=== PATIENT | female | born 1975 | race Caucasian/White ===

== ENCOUNTER 2022-01-14 14:58 | Outpatient (RCR) | payer OTHER, SELFPAY ==
[2022-01-14] MEDS: 0.9 % SODIUM CHLORIDE 1000 ml 1,000 ML IV (15:50)
[2022-01-14] MEDS: diphenhydrAMINE 50 MG/ML inj 12.5 MG IV (15:50)
[2022-01-14 15:51] LABS: Basophils Absolute Auto 0.02 K/uL (0.00-0.30); Basophils Percent Auto 0.4 % (0.0-3.0); Eosinophils Absolute Auto 0.16 K/uL (0.00-0.50); Eosinophils Percent Auto 3.5 % (0.0-7.0); Hematocrit 39.3 % (33.0-51.0); Hemoglobin* 13.1 gm/dL (12.0-16.0); Immature Granulocytes Abs Auto 0.03 K/uL (0.00-0.30); Lymphocytes Percent Auto 35.2 % (20-44); Mean Corpuscular HGB Conc 33 gm/dL (32-36); Mean Corpuscular Hemoglobin 30 pg (26-34); Mean Corpuscular Volume 89 fL (80-100); Monocytes Percent Auto 4.6 % (0.0-11.0); Neutrophils Absolute Auto 2.53 K/uL (1.7-7.0); Neutrophils Percent Auto 55.6 % (42.0-72.0); Platelet Count* 275 K/uL (140-440); RDW Coefficient of Variation % 12.8 % (11.5-15.5); Red Blood Count 4.43 m/uL (4.00-5.20); White Blood Count* 4.55 K/uL (4.50-11.00)
[2022-01-14] MEDS: KETOROLAC 15 MG/ML inj IVP (15:51)
[2022-01-14 15:53] VITALS: BP 112/79; PULSE 54; RESP 16; TEMP 35.9; O2SAT 97
[2022-01-14 15:53] LABS: Chloride* 106 mmol/L (96-114); Sodium* 138 mmol/L (135-149)
[2022-01-14 15:54] LABS: Potassium* 3.9 mmol/L (3.6-5.1); Slide Review Reflex No
[2022-01-14 15:56] LABS: Aspartate Amino Transferase* 22 U/L (12-35); Bilirubin Total* 0.7 mg/dL (0.1-1.5); Carbon Dioxide* 27 mmol/L (20-32); Creatinine* 0.8 mg/dL (0.5-1.5); Estimated Glomerular Filt Rate 93 ml/min
[2022-01-14 15:57] LABS: Alanine Aminotransferase* 15 U/L (4-35); Alkaline Phosphatase* 42 U/L (40-150); Blood Urea Nitrogen* 13 mg/dL (5-24); Calcium* 9.4 mg/dL (8.4-10.6); Glucose* 100 mg/dL (60-115)
[2022-01-14 16:00] LABS: C Reactive Protein* < 0.5 mg/dL (0.5-1.0)
[2022-01-14 17:06] LABS: Erythrocyte SedimentationRate* 2 mm/hr (2-20)
== END 2022-07-13 23:59 | disposition home or self-care (01) ==
LOC: ED 14:58
PROVIDERS: Visit Provider Family Medicine
DX: G43.909 Migraine, unspecified, not intractable, without status migrainosus (principal); Z51.89 Encounter for other specified aftercare
CPT/HCPCS: 36415; 80053; 85025; 85651; 86140; J1200; J1885; J7030

== ENCOUNTER 2022-04-14 09:17 | Outpatient (CLI) | payer OTHER, SELFPAY ==
--- OUTSIDE RECORDS SUMMARY | 2022-04-14 09:20 | XMS_ITS | Encounter Summary ---
:1975 Author Organization [facility] Address [address] [place] [address] Care Team Providers Name Role Phone Sascha Apodaca MD Primary Care Provider Encounter Details Date Type Department Care Team Description 12/11/[address], Drive-Up Encounter [facility] [address] [facility] [place] [address] diseases [phone] Social History Tobacco Use Types Packs/Day Years Used Date Smoking Tobacco: Never Smokeless Tobacco: Never Sex Assigned at Date Recorded Not on file documented as of this encounter Plan of Treatment Not on filedocumented as of this encounter Procedures Procedure Name Priority Date/Time Associated Comments Diagnosis 2019 NOVEL Routine 12/11/2019 1:13 PM Encounter for Results for this CORONAVIRUS CDT screening for other procedur e are in viral diseases the results section. documented in this encounter Results Symptomatic - 2019 Novel Coronavirus (COVID-19) (12/11/2019 1:13 PM CDT) [facility] Method Time Signature COVID-19 Not Not 12/12/2019 [facility] Interpretation Detected Detected 2:18 AM CENTRAL LAB CDT Specimen Anatomical Collection Method Collection Time Receive d Time (Source) Location / / Volume Laterality Swab (Source Non-blood 12/11/2019 1:13 PM 0 4:22 Required) Collection / CDT PM CDT Unknown Narrative [facility] CENTRAL LAB - 12/12/2019 2:18 AM CDT Testing has been performed by Patient Safety Sitter Mediated Amplification. This test has been authorized by the FDA under an Emergency Use Authorization (EUA) for use by authorized laboratories. Sascha Apodaca MD LAB_1 Performing Organization Address City/State/ZIP Code Phon e Number [facility] [address] [address] documented in this encounter Visit Diagnoses Diagnosis Encounter for screening for other viral diseases documented in this encounter Additional Health Concerns Infection Onset Date Last Indicated Resolved Time R/O COVID19 12/11/2019 12/11/2019 12/12/2019 2:18 AM CDT documented as of this encounter Care Teams Travel Assistant Relationship Specialty Start Date End Date Sascha Apodaca MD PCP - General 05/30/171999 [place] [address] documented as of this encounter
--- OUTSIDE RECORDS SUMMARY | 2022-04-14 09:20 | XMS_ITS | Encounter Summary ---
:1975 Author [facility] Address [address] [place] [address] Care Team Providers Name Role Phone Sascha Apodaca MD Primary Care Provider Reason for Visit Reason Comments Questions PT Encounter Details Date Type Department Care Team Description 06/15/2017 Telephone [facility] Cristian Sotomayor, SAMPLE CASE PORTER, Questions (PT) [address] [place], [place] [address] [address]100 [facility] [phone] [place] [address] (Wo rk) Social History Tobacco Use Types Packs/Day Years Used Date Smoking Tobacco: Never Smokeless Tobacco: Never Sex Assigned at Date Recorded Not on file documented as of this encounter Nursing Notes Felicitas Phoenix, RN - 06/15/2017 2:03 PM CST the patient left message on voicemail and would like to talk with Cristian Thompson about her PT. She may go to [place] [facility] She has the order paper work. Left message on voicemail that she may go to PT in [place] if her insurance approves of this as she has the order with her. DEVELOPER documented in this encounter Plan of Treatment Not on filedocumented as of this encounter Visit Diagnoses Not on filedocumented in this encounter Care Teams Preflight Inspector Relationship Specialty Start Date End Date Sascha Apodaca MD PCP - General 05/30/171999 [place] [address] documented as of this encounter
--- OUTSIDE RECORDS SUMMARY | 2022-04-14 09:20 | XMS_ITS | Clinical Summary ---
:1975 Author Organization [facility] Address [address], [place] [address] Care Team Providers Name Role Phone Sascha Apodaca MD Primary Care Provider Source Comments You are receiving this document as you are listed as the primary care provider,follow-up provider, or the patient has been referred to you for consultation.This is in compliance with the Medicare and Medicaid EHR Incentive Program,which states Providers who transition their patient to another setting of careor provider of care or refers their patient to another provider of care shouldprovide summarycare record for each transition of care or referral. [employer] Allergies No known active allergies Medications Medication Sig Dispensed Refills Start Date End Date Status ALBUterol sulfate HFA Inhale 2 Puffs 0 Active 108 (90 BASE) MCG/ACT every 4 hours as inhaler needed for Wheezing. oseltamivir (TAMIFLU) Take 1 twice 10 Cap 0 08/01/2016 Active 75 MG daily x 5 days capsuleIndications: Flu-like symptoms Additional Information Patient not taking. Reported on 06/07/2017 Active Problems No known active problems Social History Tobacco Use Types Packs/Day Years Used Date Smoking Tobacco: Never Smokeless Tobacco: Never Sex Assigned at Date Recorded Not on file Last Filed Vital Signs Vital Sign Reading Time Taken Comments Blood Pressure - - Pulse 77 08/01/2016 4:26 PM FIBROUS PLASTERER Temperature 37.2 ??C (98.9 ??F) 08/01/2016 4:26 PM FIBROUS PLASTERER Respiratory Rate - - Oxygen Saturation 100% 08/01/2016 4:26 PM FIBROUS PLASTERER Inhaled Oxygen Concentration - - Weight 59 kg (130 lb) 06/07/2017 2:47 PM FIBROUS PLASTERER Height 167.6 cm (5' 6) 06/07/2017 2:47 PM FIBROUS PLASTERER Body Mass Index 20.98 06/07/2017 2:47 PM FIBROUS PLASTERER Plan of Treatment Health Maintenance Due Date Last Done Comments Cervical Cancer Screening 1975 Due Colon Cancer Screening Plan 1975 Due Hep C Screening (Preventive 1975 Services) HepB (1) 1975 COVID-19 Vaccine (#1) 1975 HIV Screening (Preventive 1993 Services) Adult Preventive Visit 1995 Influenza (#1) 2022 03/19/2020, 03/14/2019, 03/15/2018, Additional history exists Cholesterol 2022 DTaP/Tdap/Td (2 - Tdap) 07/19/2026 07/19/2016 Zoster/Shingles (1 of 2) 2027 HPV Vaccine Aged Out No longer eligib le based on patient 's age to complete this topic HepA Aged Out No longer eligib le based on patient 's age to complete this topic Hib Aged Out No longer eligib le based on patient 's age to complete this topic IPV (Polio) Aged Out No longer eligib le based on patient 's age to complete this topic MCV4 Aged Out No longer eligib le based on patient 's age to complete this topic Pneumococcal Aged Out No longer eligib le based on patient 's age to complete this topic Insurance Payer Benefit Plan / Subscriber ID Effective Phone Address T e Group Dates PREFERREDONE PREFERREDONE [id number] 2016-Pre [phone] OPEN ACCESS sent [phone] [place] [phone] Clarisse Serra Personal/Family Self [address] (Home) [place] [address] Clarisse Serra Personal/Family Self [address] (Home) [place] [address] Clarisse Serra Personal/Family Self 1975 [address] (Home) [place] [address] Care Teams Professor Of Mechanical Engineering Relationship Specialty Start Date End Date Sascha Apodaca MD PCP - General 05/30/171999 [place] [address]
--- OUTSIDE RECORDS SUMMARY | 2022-04-14 09:20 | XMS_ITS | Encounter Summary ---
:1975 Author Organization [facility] Address [address] [place] [address] Care Team Providers Name Role Phone Sascha Apodaca MD Primary Care Provider Reason for Referral Therapies (Routine) - Closed Specialty Diagnoses / Procedures Referred By Contact Refer red To Contact Diagnoses Tibialis posterior tendinitis, unspecified laterality Cristian Thompson, NORBERTO OSUNA [address] [facility] NATALIE Proctor [phone] 1 Referral ID Status Reason Start Date Expiration Date Visits Requ ested Visits Authorized [id number] Closed 06/07/2017 08/06/2017 1 1 Scheduling Instructions Your provider has recommended an appoint ment with [facility]. You may call [phone] to schedule your appoi ntment. If you do not schedule an appointment within the next 1 to 3 business days, we will call you to help arrange your appointment. We suggest you call your [facility] insurance company about your coverage and benefits for this appointment. OTAPE EDITOR Reason for Visit Reason Comments ANKLE PAIN bilateral ankle pain Encounter Details Date Type Department Care Team Description 06/07/2017 Surgical Consult [facility] Cristian Thompson Tibi alis [facility] NORBERTO OSUNA tendinitis, [address] [facility] [address] [facility] unspecified NATALIE Fernandes [place] lateralit y (Primary [id number] Dx) [phone] Social History Tobacco Use Types Packs/Day Years Used Date Smoking Tobacco: Never Smokeless Tobacco: Never Sex Assigned at Date Recorded Not on file documented as of this encounter Last Filed Vital Signs Vital Sign Reading Time Taken Comments Blood Pressure - - Pulse - - Temperature - - Respiratory Rate - - Oxygen Saturation - - Inhaled Oxygen Concentration - - Weight 59 kg (130 lb) 06/07/2017 2:47 PM VIDEOTAPE EDITOR Height 167.6 cm (5' 6) 06/07/2017 2:47 PM VIDEOTAPE EDITOR Body Mass Index 20.98 06/07/2017 2:47 PM VIDEOTAPE EDITOR documented in this encounter Patient Instructions Patient InstructionsWellCristian khalil APRN, CNP - 06/07/2017 2:30 PM CST Cristian Thompson CNP Foot & Ankle Specialist Manager Consumer: Ana Vale Please contact Ana for all administrative questions at [phone] Please contact Cristian for all medical questions at [phone] Medication Requests: Prescriptions are not filled on Weekends or on Weekdays after 3:00PM For all medication refills: Request a refill using [employer] or contact your Pharmacy Please buy and use the Super Feet insert. Do not go barefoot at home. Go to PT as directed. If you are having continued pain after finishing PT and its affecting your quality of life then we will get an MRI. OTAPE EDITOR documented in this encounter Progress Notes Cristian Thompson APRN, CNP - 06/08/2017 7:02 AM CST NAME: CLARISSE ROSAS MR#: [id number] CSN: [id number] AUTHENTICATING CLINICIAN: Cristian Thompson NP CONFIRM #: [id number] LOC: 711 CLINIC PROGRESS NOTE DATE OF VISIT: 06/07/2017 : 1975 CHIEF COMPLAINT: Bilateral medial ankle pain. HPI: Clarisse is a pleasant 42-year-old female who presents for initial clinical consultation regarding pain to her bilateral medial ankles that has been present since this summer/fall 2016. She was ultimately training for this last half marathon in March but was unable to do this due to the pain. She didshut down her running for a month and attempted to run again but again was having too much pain. Shehas tried things such as changing her shoes, not going barefoot at home, wearing a good supportive shoe while at work but is unable to get to where she would like to as far as her level of discomfort and being able to run. She states that her pain is worse in the morning, as high as a 4/10 and also has difficulty with stairs. She has never had this before in the past and has not been evaluated for this. Running is not new to her as she has done several half marathons before. Her baseline is about 20miles per week. When she was beginning to train, she was going as much as 7 miles per run. She has not attempted any running since March 2017. She does state that she has had flat feet her entire life bilaterally and at one point did have custom orthotics but they were a hard type insert and she washaving pain associated with wearing them and standing for her job. CURRENT MEDICAL CONDITIONS: Asthma and long QT syndrome. PREVIOUS SURGERIES: Left knee arthroscopy, 2005. MEDICATIONS: Ibuprofen p.r.n., vitamin D. ALLERGIES: Any medication that prolongs the QT interval. 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 She lives with her , two kids and her dog. Immunizations are up to date, right-handed. Denies history of substance/drug use, exercises often, however, is limited due to the pain. REVIEW OF SYSTEMS: A 15-point review of systems is negative for any pertinent positives except for those listed in the HPI. FAMILY HEALTH HISTORY: Noncontributory. PHYSICAL EXAM: Pleasant 42-year-old female in no acute distress with a height of 5 feet 6 inches and weight 130 pounds. Pedal pulses palpable bilateral feet. Skin is warm and dry bilaterally. Neurovascularly grossly intact bilaterally. Upon standing exam, she does have pes planus with right slightly greater than left. She does have pain along the course of the posterior tibial tendon bilaterally which is exacerbated by resisted inversion of the foot. No pain upon palpation to the anterior tibiotalar joint bilaterally. Normal range of motion of the bilateral ankle, subtalar joint, forefoot. When attempting to do asingle leg and heel rise, she was able to do this on both the left and the right foot. However, it did reproduce the symptoms that she has been having. Her hindfoot valgus bilaterally is flexible. ASSESSMENT: Bilateral posterior tibial tendon dysfunction stage II. Right equals left. PLAN: Clarisse has had flat feet all her life but has not had any symptoms related to her posterior tibial tendons until recently. We discussed not knowing about tendinitis versus tendinosis without having anMRI. However, her symptoms currently are only present due to running. We are going to start with a stepwise approach beginning with wearing Superfeet inserts. I did explain that she is to break these in and wear these for at least one month before she figures out if these are helping her symptoms. If they are ultimately helping her we can get new custom orthotics that are more accommodative and allowher to wear these in her shoes when she is operating and standing for long periods of time. She is no t going to go barefoot at home. She is also going to go to physical therapy. If all of this is not helping her discomfort or not getting to where she would like to be, then we discussed further imagingwith an MRI with the possibility of a steroid injection to the posterior tibial tendon sheath and/orpotentially needing surgery down the road. For now followup will be dependent on how she is doing. All questions were addressed during her visit. All parties agree with plan of care. Patient appeared pleased with the visit. DTW:VIOLETA C: R:06/08/17 07:12 CONFIRM#:[id number] OTAPE EDITOR documented in this encounter Plan of Treatment Scheduled Referrals Name Type Priority Associated Diagnoses Order S [facility] Physical Therapy Referral Routine Tibialis posterior tendi nitis, Ordered: 06/07/2017 unspecified laterality documented as of this encounter Visit Diagnoses Diagnosis Tibialis posterior tendinitis, unspecifi ed laterality - Primary documented in this encounter Care Teams Behavioral Specialist Relationship Specialty Start Date End Date Sascha Apodaca MD PCP - General 05/30/171999 [place] [address] documented as of this encounter
--- OUTSIDE RECORDS SUMMARY | 2022-04-14 09:20 | XMS_ITS | Encounter Summary ---
:1975 Author Organization [facility] Address [facility] [place] [address] Care Team Providers Name Role Phone Sascha Apodaca MD Primary Care Provider Reason for Visit (Routine) - Closed Specialty Diagnoses / Procedures Referred By Contact Refer red To Contact Radiology / Radiology. Diagnoses Walk in, 1st Mammo, baseline Sh Breast Imaging Procedures MA SCREENING BILATERAL W/ EUGENIO [address] [facility], [address] [place] [address] Phone: Referral ID Status Reason Start Date Expiration Date Visits Requ ested Visits Authorized [id number] Closed 05/10/2017 05/10/2018 1 1 Encounter Details Date Type Department Care Team Description 05/10/2017 Hospital Encounter [facility] Marjorie Sow for screening [facility] Breast M, FAST FOOD MANAGER mammogram Center [facility] [address] [facility], [address] [place] [address] [place], [place] [phone] [address] Social History Tobacco Use Types Packs/Day Years Used Date Smoking Tobacco: Never Assessed Sex Assigned at Date Recorded Not on file documented as of this encounter Plan of Treatment Not on filedocumented as of this encounter Procedures Procedure Name Priority Date/Time Associated Diagnosis Comme nts MA SCREENING Routine 05/10/2017 10:28 AM Visit for screening R esults for this BILATERAL W/ EUGENIO CORRECTIONAL SUPERVISOR LIEUTENANT mammogram procedure are in the results section. documented in this encounter Results MA Screen Bilateral w/Eugenio (05/10/2017 10:28 AM CORRECTIONAL SUPERVISOR LIEUTENANT) Anatomical Region Laterality Modality Breast Bilateral Mammography Specimen (Source) Anatomical Location Collection Method / Collectio n Time Received Time / Laterality Volume Impressions 05/10/2017 11:02 AM CORRECTIONAL SUPERVISOR LIEUTENANT IMPRESSION: BI-RADS CATEGORY: 1 - ??Negative. RECOMMENDED FOLLOW-UP: Annual Mammograph yun LUZ MD Narrative 05/10/2017 11:02 AM CORRECTIONAL SUPERVISOR LIEUTENANT SCREENING MAMMOGRAM, BILATERAL, DIGITAL w/CAD and TOMOSYNTHESIS, 05/10/2017 11:01 AM BREAST DENSITY: Scattered fibroglandular densities. CLINICAL INFORMATION: Breast screening. ??; Visit for screening mammogram, None,baseline FINDINGS: Negative. Stable exam. Screeni ng exam in one year recommended. Procedure Note Nikita Luz MD - 05/10/2017Formatt ing of this note might be different from the original. SCREENING MAMMOGRAM, BILATERAL, DIGITAL w/CAD and TOMOSYNTHESIS, 05/10/2017 11:01 AM BREAST DENSITY: Scattered fibroglandular densities. CLINICAL INFORMATION: Breast screening. ; Visit for screening mammogram, None,baseline FINDINGS: Negative. Stable exam. Screeni ng exam in one year recommended. IMPRESSION: BI-RADS CATEGORY: 1 - Negati ve. RECOMMENDED FOLLOW-UP: Annual Mammograph yun LUZ MD Marjorie Sow NP IMG MAMMOGRAPHY ORDERABLES documented in this encounter Visit Diagnoses Diagnosis Visit for screening mammogram Other screening mammogram documented in this encounter Care Teams Front End Developer Designer Relationship Specialty Start Date End Date Sascha Apodaca MD PCP - General Emergency Medicine 05/10/[address] [address] documented as of this encounter
--- OUTSIDE RECORDS SUMMARY | 2022-04-14 09:20 | XMS_ITS | Clinical Summary ---
:1975 Author Organization [employer] [facility] [place] [address] Care Team Providers Name Role Phone Kylee Isaacs MD Primary Care Provider [phone] Allergies Active Allergy Reactions Severity Noted Date Comments Cat Dander Bronchospasm 04/21/2010 Bronchospasm Dog Dander Bronchospasm 03/25/2018 Bronchospasm Unlisted Allergen Arrhythmia 09/14/2018 Avoid any medications that (Include Detail In prolong t he QT. Comments) Pollen Extracts Bronchospasm 03/25/2018 Bronchospasm Medications Medication Sig Dispensed Refills Start Date End Date Status busPIRone (BUSPAR) 5 Take 5 mg by mouth 0 09/06/2018 Active mg tablet 2 times daily. LORazepam (ATIVAN) 0.5 Take 0.5 mg by 0 09/06/2018 Active mg tab mouth at bedtime if needed. SUMAtriptan (IMITREX) Take 50 mg by 0 09/02/2018 Active 50 mg tablet mouth every 2 hours if needed. Max dose is 4 tablets. VENTOLIN HFA 90 90 mcg. 6 07/18/2018 Act dominic mcg/actuation inhaler Active Problems Problem Noted Date Seasonal allergies 09/14/2018 Environmental allergies 09/14/2018 Long Q-T syndrome 09/14/2018 Overview: Familial. See cardiology note 04/12/18. Needs cardioversion if any sort of fainting, seizure type episode. She has never had an episode. Immunizations Name Administration Dates Next Due Influenza Virus, Unspecified 03/30/2017 Tdap 07/19/2016 Social History Tobacco Use Types Packs/Day Years Used Date Never Smoker Smokeless Tobacco: Never Used Tobacco Cessation: Counseling Given: Yes Sex Assigned at Date Recorded Not on file Obstetrics History Last Filed Vital Signs Vital Sign Reading Time Taken Comments Blood Pressure 95/60 09/26/2018 2:44 PM CDT tower Pulse 66 09/26/2018 2:44 PM CDT Temperature - - Respiratory Rate - - Oxygen Saturation 98% 09/14/2018 1:10 PM CDT Inhaled Oxygen Concentration - - Weight 65.4 kg (144 lb 3.2 oz) 09/26/2018 2:44 PM CDT Height 166.8 cm (5' 5.67) 09/26/2018 2:44 PM CDT Body Mass Index 23.51 09/26/2018 2:44 PM CDT Plan of Treatment Health Maintenance Due Date Last Done Comments Depression screening for age 12+ 1989 Hepatitis C screening for age 18-79 1995 BMI (ht and wt on same day) for age 18+ 09/27/2019 09/27/19 19 Pap test for age 21-65 04/12/2020 04/12/2017, 04/12/2017 COVID-19 vaccine series (2 - Pfizer 04/01/2021 03/11/2021 series) Influenza for age 9-49 02/11/2022 03/30/2017 Colonoscopy through age 75 2022 Lipids for age 45-75 2022 Mammogram for age 45-75 2022 Tetanus booster 07/19/2026 07/19/2016 Tdap Completed 07/19/2016 Results Not on filefrom Last 3 Months Insurance Payer Benefit Plan / Subscriber ID Effective Dates Phone Addre ss Type Group PREFERRED ONE PREFERRED ONE [id number] 2016-Xiang BRAUN [address] [place] [address] Care Teams Tabulating Clerk Relationship Specialty Start Date End Date Kylee Isaacs MD PCP - General Family Practice 05/26/211999 [place], [place] [address]
--- OUTSIDE RECORDS SUMMARY | 2022-04-14 09:20 | XMS_ITS | Encounter Summary ---
:1975 Author Organization [facility] Address [address] [place] [address] Care Team Providers Name Role Phone Sascha Apodaca MD Primary Care Provider Encounter Details Date Type Department Care Team Description 12/10/[address], Drive-Up Encounter for screening [address] [facility] [place] [address] diseases [phone] Social History Tobacco Use Types Packs/Day Years Used Date Smoking Tobacco: Never Smokeless Tobacco: Never Sex Assigned at Date Recorded Not on file documented as of this encounter Plan of Treatment Not on filedocumented as of this encounter Procedures Procedure Name Priority Date/Time Associated Comments Diagnosis 2019 NOVEL Routine 12/10/2019 11:16 Encounter for Results fo r this CORONAVIRUS AM CDT screening for other procedur e are in viral diseases the results section. documented in this encounter Results Symptomatic - 2019 Novel Coronavirus (COVID-19) (12/10/2019 11:16 AM CDT) [facility] Method Time Signature COVID-19 Not Not 12/10/2019 [facility] Interpretation Detected Detected 11:33 PM CENTRAL LAB CDT Specimen Anatomical Collection Method Collection Time Receive d Time (Source) Location / / Volume Laterality Swab (Source Non-blood 12/10/2019 11:16 12/10/2019 3:58 Required) Collection / AM CDT PM CDT Unknown Narrative [facility] CENTRAL LAB - 12/10/2019 11:33 PM CDT Testing has been performed by Part Time Mediated Amplification. This test has been authorized by the FDA under an Emergency Use Authorization (EUA) for use by authorized laboratories. Sascha Apodaca MD LAB_1 Performing Organization Address City/State/ZIP Code Phon e Number [facility] [address] [address] documented in this encounter Visit Diagnoses Diagnosis Encounter for screening for other viral diseases documented in this encounter Additional Health Concerns Infection Onset Date Last Indicated Resolved Time R/O COVID19 12/10/2019 12/10/2019 12/10/2019 11:33 PM CDT documented as of this encounter Care Teams Assembly Leader Relationship Specialty Start Date End Date Sascha Apodaca MD PCP - General 05/30/171999 [place] [address] documented as of this encounter
--- OUTSIDE RECORDS SUMMARY | 2022-04-14 09:20 | XMS_ITS | Encounter Summary ---
:1975 Author Organization [facility] Address [address] [place] [address] Care Team Providers Name Role Phone Sascha Apodaca MD Primary Care Provider Reason for Visit Reason Comments COVID Screening Encounter Details Date Type Department Care Team Description 12/10/2019 Telephone [place] [facility] Unknown, Physician COVID Screening [address] [place], [place] [address] [place] [address] [phone] (Wo rk) Social History Tobacco Use Types Packs/Day Years Used Date Smoking Tobacco: Never Smokeless Tobacco: Never Sex Assigned at Date Recorded Not on file documented as of this encounter Nursing Notes Reno Quevedo - 12/10/2019 9:34 AM CDT Initial Screening: Patient information Best number to contact patient: [phone] Reason for Call: COVID Screening/Testing Request In the last 14 days have you had close contact with a person known to have COVID-19 or been instructed to self-isolate? No Are symptoms urgent/emergent? No Do you currently have any of these symptoms? Cough Do you also have any of these symptoms? None. Patient also has headache and vomiting. Sounds like you qualify for testing. I have a few more questions. Do you have any of these risk factors? Risk Factors: None Do you fall into any of these groups? 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 You need to schedule an appt for drive-up testing; I???m going to transfer you now to make that appointment. [[phone] - do not share with patient] ??? Your test results will be shared with you online, typically within 2-3 days. ??? If you are not active for MyChart: We will send you a link to sign up for your online account within the next hour. documented in this encounter Plan of Treatment Not on filedocumented as of this encounter Visit Diagnoses Not on filedocumented in this encounter Additional Health Concerns Infection Onset Date Last Indicated Resolved Time R/O COVID19 12/10/2019 12/10/2019 12/10/2019 11:33 PM CDT R/O COVID19 12/11/2019 12/11/2019 12/12/2019 2:18 AM CDT documented as of this encounter Care Teams Special Delivery Messenger Relationship Specialty Start Date End Date Sascha Apodaca MD PCP - General 05/30/171999 [place] [address] documented as of this encounter
--- OUTSIDE RECORDS SUMMARY | 2022-04-14 09:20 | XMS_ITS | Encounter Summary ---
:1975 Author Organization [facility] Address [address] [place] [address] Care Team Providers Name Role Phone Sascha Apodaca MD Primary Care Provider Reason for Visit Reason Comments HEADACHE DIARRHEA COVID Questions COVID Exposure Encounter Details Date Type Department Care Team Description 01/25/2020 Telephone Careline Unknown, HEADACHE; DIARRHEA; [address] Physician COVID Questions; COVID [place], [place] [address] Exposure [phone] [place], [place] [address] Social History Tobacco Use Types Packs/Day Years Used Date Smoking Tobacco: Never Smokeless Tobacco: Never Sex Assigned at Date Recorded Not on file documented as of this encounter Nursing Notes Milana Ross RN - 01/25/2020 4:54 PM CDT Verified patient identity: Yes Situation/Background (brief explanation of current symptoms/situation): Reports she would to arrangefor COVID testing, states her and children all tested. She has a headache, diarrhea, runny nose. 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 Does the patient currently have any of these Covid symptoms? (Shortness of Breath/Difficulty of breathing, Sore Throat, Fever, Cough, New loss of smell or loss of taste) Covid19 Symptoms/Need Testing Patient reports these symptoms: Headache, diarrhea, Severe/Stat Evaluation for the following symptoms: ?? Severe dyspnea or cyanosis ?? Severe wheezing or severe stridor ?? Excessive drooling/unable to swallow liquids or secretions ?? Acting confused or disoriented ?? Chest pain not associated with coughing or taking a deep breath ?? Sounds serious and/or life threatening No STAT Symptoms In the last 14 days have you had close contact with a person known to have COVID-19 or been instructed to self-isolate? Yes Do you have any of these risk factors? Chronic Lung Disease/Asthma Do you fall into any of these groups? 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 No Schedule COVID Testing [RN: place COVID order and schedule appointment for testing using [employer] or transfer to clinic frontline/Appointment Center to schedule.] Does patient have any other concerns? Yes If directing the patient to schedule an appointment or be seen in the appropriate urgent care: In the last 14 days have you had close contact with a person known to have COVID-19 or been instructed to self-isolate? Yes - schedule or send to respiratory designated site only Reviewed with patient pertinent medical history(as it related to the call): Yes Reviewed with patient pertinent medications (as they relate to call): Yes Reviewed with patient pertinent allergies (as they relate to call): Yes Transferred to appointments for video visit. Milana Ross RN 01/25/2020, 5:05 PM Rox Eubanks - 01/25/2020 4:35 PM CDT Verified patient identity using three identifiers: Yes Caller's relationship to patient: Self At which care system or clinic is the patient normally seen? Rahda Wilson ([facility]) Clinics Symptoms Describe the reason for call/symptoms (include location and duration if applicable): Pt is experiencing a headache and diarrhea. Pt's and 2 children tested positive for COVID-19 Plan:The current callback time to speak with a nurse is 1.5 hour. If your symptoms change or worsen,or if you have not received a call back in the stated timeframe, please call us back documented in this encounter Plan of Treatment Not on filedocumented as of this encounter Visit Diagnoses Not on filedocumented in this encounter Care Teams Rf Manager Relationship Specialty Start Date End Date Sascha Apodaca MD PCP - General 05/30/17[address] [place] [address] documented as of this encounter
--- OUTSIDE RECORDS SUMMARY | 2022-04-14 09:20 | XMS_ITS | Clinical Summary ---
:1975 Author Organization [facility] Address [address] [place] [address]. [place] [address] Care Team Providers Name Role Phone Sascha Apodaca MD Primary Care Provider [phone] Social History Tobacco Use Types Packs/Day Years Used Date Smoking Tobacco: Never Assessed Sex Assigned at Date Recorded Not on file Plan of Treatment Not on file Insurance Payer Benefit Plan / Subscriber ID Effective Phone Address T ype Group Dates [employer]REFERR[employer] PREFERR[employer] HMO [id number] 2016-Pres [phone] [address] [address] PPO ent [address] [place] [phone] Care Teams Lead Level Designer Relationship Specialty Start Date End Date Sascha Apodaca MD PCP - General Emergency Medicine 05/10/17 [facility] [address] [place] [address]
--- OUTSIDE RECORDS SUMMARY | 2022-04-14 09:20 | XMS_ITS | Encounter Summary ---
:1975 Author Organization [facility] Address [address], [place] [address] Care Team Providers Name Role Phone Sascha Apodaca MD Primary Care Provider Reason for Visit Reason Onset Date Comments CANCEL APPOINTMENT 04/02/2020 Patient Cancelled Encounter Details Date Type Department Care Team Description 04/02/2020 Telemedicine [facility] Chelsey Alvarado En counters for Medicine MD Pratibha administrative purposes [address] [place] [address] (Primary Dx) [place] [address] [place], [place] [phone] [address] Social History Tobacco Use Types Packs/Day Years Used Date Smoking Tobacco: Never Smokeless Tobacco: Never Sex Assigned at Date Recorded Not on file documented as of this encounter Progress Notes Chelsey Alvarado MD - 04/02/2020 9:30 AM CDT The patient cancelled this appointment. Called Dr. Serra- she is going to be seen at [facility] and has cancelled this appointment. documented in this encounter Plan of Treatment Not on filedocumented as of this encounter Visit Diagnoses Diagnosis Encounters for administrative purposes - Primary Encounters for unspecified administrativ e purpose documented in this encounter Care Teams Personal Security Specialist Relationship Specialty Start Date End Date Sascha Apodaca MD PCP - General 05/30/17[address] [place] [address] documented as of this encounter
--- OUTSIDE RECORDS SUMMARY | 2022-04-14 09:20 | XMS_ITS | Encounter Summary ---
:1975 Author Organization [facility] Address [address] [place] [address] Care Team Providers Name Role Phone Sascha Apodaca MD Primary Care Provider Encounter Details Date Type Department Care Team Description 12/11/2019 Notes/Orders [facility] Sascha Apodaca Encount er for Cher Martins MD screening for other [address] [facility] [place] [address] [place], [place] [phone] Social History Tobacco Use Types Packs/Day Years Used Date Smoking Tobacco: Never Smokeless Tobacco: Never Sex Assigned at Date Recorded Not on file documented as of this encounter Plan of Treatment Not on filedocumented as of this encounter Results Symptomatic - 2019 Novel Coronavirus (COVID-19) (12/11/2019 1:13 PM CDT) [facility] Method Time Signature COVID-19 Not Not 12/12/2019 [employer] Interpretation Detected Detected 2:18 AM CENTRAL LAB CDT Specimen Anatomical Collection Method Collection Time Receive d Time (Source) Location / / Volume Laterality Swab (Source Non-blood 12/11/2019 1:13 PM 0 4:22 Required) Collection / CDT PM CDT Unknown Narrative [facility] - 12/12/2019 2:18 AM CDT Testing has been performed by Donor Floor Technician Mediated Amplification. This test has been authorized by the FDA under an Emergency Use Authorization (EUA) for use by authorized laboratories. Sascha Apodaca MD LAB_1 Performing Organization Address City/State/ZIP Code Phon e Number [facility] [address] [address] documented in this encounter Visit Diagnoses Diagnosis Encounter for screening for other viral diseases documented in this encounter Care Teams Integration Engineer Relationship Specialty Start Date End Date Sascha Apodaca MD PCP - General 05/30/171999 [place] [address] documented as of this encounter
--- OUTSIDE RECORDS SUMMARY | 2022-04-14 09:20 | XMS_ITS | Encounter Summary ---
:1975 Author Organization [facility] Address [address] [place] [address] Care Team Providers Name Role Phone Sascha Apodaca MD Primary Care Provider Encounter Details Date Type Department Care Team Description 12/10/2019 Notes/Orders [facility] Sascha Apodaca for Cher Martins MD screening for other [address] [facility] viral diseases [place], [place] [address] [place], [place] [phone] Social History Tobacco Use Types Packs/Day Years Used Date Smoking Tobacco: Never Smokeless Tobacco: Never Sex Assigned at Date Recorded Not on file documented as of this encounter Plan of Treatment Not on filedocumented as of this encounter Results Symptomatic - 2019 Novel Coronavirus (COVID-19) (12/10/2019 11:16 AM CDT) [facility] Method Time Signature COVID-19 Not Not 12/10/2019 [employer] Interpretation Detected Detected 11:33 PM CENTRAL LAB CDT Specimen Anatomical Collection Method Collection Time Receive d Time (Source) Location / / Volume Laterality Swab (Source Non-blood 12/10/2019 11:16 12/10/2019 3:58 Required) Collection / AM CDT PM CDT Unknown Narrative [facility] - 12/10/2019 11:33 PM CDT Testing has been performed by Prop Cutter Mediated Amplification. This test has been authorized by the FDA under an Emergency Use Authorization (EUA) for use by authorized laboratories. Sascha Apodaca MD LAB_1 Performing Organization Address City/State/ZIP Code Phon e Number [facility] [address] [address] documented in this encounter Visit Diagnoses Diagnosis Encounter for screening for other viral diseases documented in this encounter Care Teams Unit Nurse Relationship Specialty Start Date End Date Sascha Apodaca MD PCP - General 05/30/[address] [place] [address] documented as of this encounter
--- OUTSIDE RECORDS SUMMARY | 2022-04-14 09:20 | XMS_ITS | Encounter Summary ---
:1975 Author Organization [facility] Address [address] [address] Care Team Providers Name Role Phone Unassigned, Provider Primary Care Provider Unavailable Reason for Visit Reason Comments FEVER Encounter Details Date Type Department Care Team Description 08/01/2016 [facility] Leyla Esquivel, Flu-like symptoms [address] [facility] JOSE (Primary Dx) [address] [place] [address] [place], [place] [phone] (Wo rk) Social History Tobacco Use Types Packs/Day Years Used Date Smoking Tobacco: Never Assessed Sex Assigned at Date Recorded Not on file documented as of this encounter Last Filed Vital Signs Vital Sign Reading Time Taken Comments Blood Pressure - - Pulse 77 08/01/2016 4:26 PM ACCOUNTING FILE CLERK Temperature 37.2 ??C (98.9 ??F) 08/01/2016 4:26 PM ACCOUNTING FILE CLERK Respiratory Rate - - Oxygen Saturation 100% 08/01/2016 4:26 PM ACCOUNTING FILE CLERK Inhaled Oxygen Concentration - - Weight - - Height - - Body Mass Index - - documented in this encounter Patient Instructions Patient InstructionsNLeyla aguirre PA-C - 08/01/2016 4:35 PM CST Take tamiflu as directed. If not improving in 1 week, see primary care - sooner if worsens. UNTING FILE CLERK documented in this encounter Progress Notes Leyla Esquivel PA-C - 08/01/2016 4:27 PM CST SUBJECTIVE: Clarisse Serra is an 41 y.o. female who presents with an illness characterized by body aches/chills and fever plus cough x 1 days. History of asthma. Pt has No Known Allergies. There is no problem list on file for this patient. Current Outpatient Prescriptions Medication Sig Dispense Refill ??? ALBUterol sulfate HFA 108 (90 BASE) MCG/ACT inhaler Inhale 2 Puffs every 4 hours as needed for Wheezing. ??? oseltamivir (TAMIFLU) 75 MG capsule Take 1 twice daily x 5 days 10 Cap 0 No current facility-administered medications for this visit. Pt has no past medical history on file. Pt family history is not on file. Pt ROS: Denies significant SOB OBJECTIVE: Pulse 77 Temp(Src) 98.9 ??F (37.2 ??C) (Tympanic) SpO2 100% General appearance: alert, in no distress Ears: R TM - WNL: pearly, mckeon with good light reflex, L TM - WNL: pearly, mckeon with good light reflex Nose: normal Oropharynx: normal Neck: normal, supple and no adenopathy Lungs: clear to auscultation without any rales or rhonchi bilaterally ASSESSMENT: ICD-10-CM 1. Flu-like symptoms R68.89 oseltamivir (TAMIFLU) 75 MG capsule PLAN: Rest, fluids, acetaminophen, and humidification. Follow up with primary provider with persistence, worsening, appearance of new symptoms. Leyla Esquivel PA-C 08/01/2016, 4:46 PM UNTING FILE CLERK documented in this encounter Plan of Treatment Not on filedocumented as of this encounter Visit Diagnoses Diagnosis Flu-like symptoms - Primary Influenza with other respiratory manifes tations documented in this encounter Care Teams Meter Calibrator Relationship Specialty Start Date End Date Unassigned, Provider PCP - General Unknown Physician 08/01/16 05/29/[address] [place] [address] documented as of this encounter
--- NOTE | 2022-04-14 09:35 | CRLHL7_ITS ---
For Patients: As a result of the Century Cures Act, medical imaging exams and procedure reports are released immediately into your electronic medical record. You may view this report before your referring provider. If you have questions, please contact your health care provider. BILATERAL SCREENING MAMMOGRAM WITH COMPUTER-AIDED DETECTION AND TOMOSYNTHESIS TECHNIQUE: CC, MLO and Implant displaced views were obtained. These mammographic images have been obtained using full-field digital technique. These mammographic images were interpreted with the benefit of computer-aided detection. Breast Tomosynthesis was used in this interpretation. COMPARISON FILM: 04/10/21, 04/24/19. FINDINGS: The breasts are extremely dense, which lowers the sensitivity of mammography IMPRESSION: There is no radiographic evidence for malignancy. ASSESSMENT: BI-RADS Category 2: Benign RECOMMENDATION: Routine screening mammogram in 1 year. A lay language report of this examination will be provided to the patient. Cristian Vaca M.D. Diagnostic Radiologist [email or web address] Transcribed: 9:26 p.m. PIERRE/Dictated by: Cristian Vaca MD @ 04/14/2022 12:34:00 PM (Electronically Signed)
== END 2022-04-14 09:18 | disposition home or self-care (01) ==
LOC: MAMMO 09:18
PROVIDERS: PCP Obstetrics & Gynecology; Visit Provider Obstetrics & Gynecology
DX: Z12.31 Encounter for screening mammogram for malignant neoplasm of breast (principal); R92.2 Inconclusive mammogram
CPT/HCPCS: 77063; 77067

== ENCOUNTER 2022-11-29 09:25 | Outpatient (CLI) | payer OTHER, SELFPAY ==
--- NOTE | 2022-11-29 09:15 | CRLHL7_ITS ---
For Patients: As a result of the Century Cures Act, medical imaging exams and procedure reports are released immediately into your electronic medical record. You may view this report before your referring provider. If you have questions, please contact your health care provider. INDICATION: Headache. TECHNIQUE: MRI brain: Multiplanar multisequence noncontrast MR images acquired. MRA head: [id number] imaging acquired. COMPARISON: None. FINDINGS: MRI brain: The ventricles and sulci are within normal limits for patient age. No mass effect or midline shift. Few punctate FLAIR hyperintensities in the supratentorial white matter, nonspecific. No intracranial hemorrhage or pathologic extra-axial fluid collection. No diffusion restriction to suggest acute infarction. The major arterial flow voids of the skullbase are preserved. The globes are symmetric. Minimal paranasal sinus mucosal thickening. Trace left mastoid effusion. Bilateral temporomandibular joint degenerative changes, more advanced on the right. MRA head: The internal carotid, middle cerebral, and anterior cerebral arteries are widely patent. The vertebral, basilar, and posterior cerebral arteries are widely patent. No intracranial aneurysm or high-flow vascular malformation. IMPRESSION: 1. No acute infarction, mass effect, or intracranial hemorrhage. 2. Few punctate T2 FLAIR hyperintensities in the supratentorial white matter are nonspecific, though typical for sequelae of minimal chronic microvascular ischemic changes or migraine headaches. 3. Unremarkable MRA of the head. Dictated by Dandre Zhang MD @ 11/29/2022 12:07:43 PM (Electronically Signed)
== END 2022-11-29 09:26 | disposition home or self-care (01) ==
LOC: MRI 09:27
PROVIDERS: PCP Family Medicine; Visit Provider Physician Assistant
DX: R51.9 Headache, unspecified (principal)
CPT/HCPCS: 70544; 70551

== ENCOUNTER 2022-12-17 13:46 | Outpatient (CLI) | payer OTHER, SELFPAY ==
--- NOTE | 2022-12-17 13:45 | MR_ITS ---
[facility] [address] [facility] [address] Phone:?[phone] Fax:?[phone] Referring Physician Information: Leona Arlin Martínez [address] [facility] [address] Phone:?[phone] Fax:?[phone] Patient:Joe Serra D.O.B:?1975 Sex:?Female Phone:?[phone] [facility] MRN:?[id number] Exam Date:?12/17/2022 EXAM: MRI of the LEFT KNEE, without contrast CLINICAL INFORMATION: Female, 47 years old, with knee pain INDICATION: Question meniscal injury PRIOR SURGERY: None reported. PLAIN FILMS: None available. COMPARISONS: No prior MRIs available. TECHNICAL INFORMATION: Using a 1.5T MR scanner and a localizing surface coil: sagittals: PD, PDFS coronals: PD, T2FS axials: PD, PDFS SEDATION: None CONTRAST: None FINDINGS: Knee joint: Effusion: Small sized left knee effusion. Popliteal cyst: None. Loose bodies: None. Subcutaneous and extra-articular soft tissues: Unremarkable. Ligaments: ACL: Intact ACL anteromedial and posterolateral bundles, without sprain or tear. PCL: Intact PCL, without acute or chronic injury. MCL: Intact MCL superficial and deep layers, without injury. LCL: Intact LCL, without injury. Posterolateral corner: No posterolateral corner soft tissue injury. Popliteus, biceps femoris, iliotibial band, popliteofibular ligament and lateral gastrocnemius are intact. Posteromedial corner: No posteromedial corner soft tissue injury. Semimembranosus, pes anserine tendons and posterior oblique ligament are without injury, tendinopathy or bursitis. Extensor mechanism: Patellar tendon: Intact, without tendinopathy. Quadriceps tendon: Intact, without tendinopathy. Retinacula: Medial and lateral retinacula are intact. Fat pads: Unremarkable infrapatellar Hoffa's, quadriceps and prefemoral fat pads. Medial compartment: Medial meniscus: Increased intrasubstance signal of the medial meniscus at the junction of the posterior body and posterior horn (sagittal series 6 image 9, without articular surfacing. No articular surface, meniscosynovial junction, or root tear. No displacement, extrusion, or inferior meniscal ganglion cyst. Medial femoral condyle: No chondromalacia or osteochondral abnormality. Medial tibial plateau: No chondromalacia or osteochondral abnormality. Lateral compartment: Lateral meniscus: Lateral meniscus is abnormal in appearance. There is complex tearing throughout the meniscus involving the undersurface, apical free edge, and inner third (coronal series 8 image 17, and sagittal series 6 image 21). Displaced flap of meniscal tissue extends centrally toward the intercondylar notch (coronal series 7 images 16-19). The posterior root of the meniscus is attenuated though appears at least partially intact (coronal series 7 image 20). The meniscofemoral ligament is intact. Lateral femoral condyle: No chondromalacia or osteochondral abnormality. Lateral tibial plateau: No chondromalacia or osteochondral abnormality. Patellofemoral joint: Patella: No chondromalacia or osteochondral abnormality. Trochlea: No chondromalacia or osteochondral abnormality. Proximal tibiofibular joint: Unremarkable, without evidence of ligament sprain injury, joint effusion or adjacent marrow edema. Bones: No stress/occult fractures or other marrow edema/pathology. IMPRESSION: 1. Complex tearing throughout the lateral meniscus with displaced flap of meniscal tissue directed centrally toward the intercondylar notch. The anterior and posterior roots appear predominantly intact, as is the meniscofemoral ligament. 2. No displaced medial meniscus tear. 3. No cruciate or collateral ligament sprain/tear. 4. No osteochondral abnormality. 5. Small knee joint effusion. KME Electronically signed on 12/20/2022 9:57:00 AM by Nakia Reeves M.D.
== END 2022-12-17 13:47 | disposition home or self-care (01) ==
PROVIDERS: PCP Family Medicine; Visit Provider Physician Assistant
DX: M25.562 Pain in left knee (principal); S83.282A Other tear of lateral meniscus, current injury, left knee, initial encounter; M25.462 Effusion, left knee
CPT/HCPCS: 73721

== ENCOUNTER 2023-01-24 08:48 | Day surgery (SDC) | payer OTHER, SELFPAY ==
[2023-01-24] VITALS (24 sets, daily range): BP systolic 81–107; BP diastolic 58–77; PULSE 45–63; RESP 12–16; TEMP 36.2–36.6; O2SAT 94–100; BMI 23.3
[2023-01-24] MEDS: LACTATED RINGERS 1000 ML 1,000 ML 100 ML IV (08:55)
[2023-01-24 09:18] LABS: Ur HCG Qualitative* Negative (Negative)
--- NOTE | 2023-01-24 10:17 | W.ANESCHARGE ---
Anesthesia Charges Start Date/Time Anesthesia Start Date: 01/24/23 Anesthesia Start Time: 10:38 Stop Date/Time Anesthesia Stop Date: 01/24/23 Anesthesia Stop Time: 11:55
[2023-01-24] MEDS: CEFAZOLIN 2 GM in 0.9 % SODIUM CHLORIDE Mini-bag 100 ML IVPB (10:45)
[2023-01-24] MEDS: ROPIVACAINE 0.5% 30 ML 150 MG INJECTION (11:39)
--- NOTE | 2023-01-24 11:44 | PM.ORPRC ---
Procedure Note Date of procedure: 01/24/23 Procedure: PREOPERATIVE DIAGNOSIS: 1. Left knee lateral meniscus tear, flap tear POSTOPERATIVE DIAGNOSIS: 1. Left knee lateral meniscus tear, bucket-handle tear with discoid variant PROCEDURE: 1. Left knee arthroscopic partial lateral meniscectomy SURGEON: Ubaldo Romero M.D. VETERINARIAN EPIDEMIOLOGIST: Jovani SMITH. Of note, an general office assistant was critical for this case to aid in patient positioning, knee manipulation, instrument exchange, and closure. ANESTHESIA: Spinal EBL: 5 mL TOURNIQUET: 30 min at 300 torr COMPLICATIONS: None evident INDICATIONS: The patient is a pleasant 47-year-old female who has experienced left knee pain particularly with any twisting or turning. Physical exam was concerning for lateral meniscus tear, this was confirmed on MRI. Additionally, attempted nonoperative management has been tried, and failed. Thus, surgery was recommended. FINDINGS: Intact articular cartilage in all 3 compartments. Intact ACL and PCL that were robust. Intact medial meniscus. Lateral meniscus showed complex tearing. There was a bucket-handle component from the posterior horn around to the anterior horn. There is also very thick me lateral meniscus tissue more consistent with the discoid variant. Even when we attempted to reduce the bucket-handle fragment, it still occupied 2/3 of the lateral plateau more like a discoid meniscus variant as opposed to the expected anatomy the posterior root was intact. The remaining meniscal rim had approximately 10 mm on the superior surface the tapered/was beveled towards the more inferior surface. DESCRIPTION OF PROCEDURE: After a thorough discussion of risks, benefits, and alternatives, the patient was brought to the operating room and placed upon the operating table. Induction of anesthesia was undertaken as previously noted. 1 g IV Ancef was administered within 1 hr of incision preoperatively. Appropriate time-out was performed identifying proper patient, site, and procedure. The left lower extremity was prepped and draped in the appropriate sterile fashion using ChloraPrep. The limb was exsanguinated and tourniquet inflated. Anterolateral and anteromedial portals were established with an 11 blade, and a diagnostic arthroscopy was performed. This identified the findings as noted above. Following the diagnostic arthroscopy, a partial lateral menisectomy was performed with the combination of basket forceps and a motorized shaver. Following this, the meniscus was re-probed and found to be stable. Approximately 25-30 % of the overall meniscus required resection. At this stage, the shaver was reinserted into the suprapatellar pouch and all remaining meniscal debris was evacuated. Instruments were removed, excess fluid was drained, and closure performed with 4-0 Monocryl with Steri-Strips. Dressings were applied, the tourniquet deflated, and the patient was awoken from anesthesia and transferred to the PACU in stable condition. PLAN: 1. Weightbear as tolerated operative extremity. Crutch / walker ambulation assistance PRN. Straight leg raise to be initiated starting tomorrow by the patient. 2. Ice, acetominophen and/or ibuprofen, and hydrocodone for pain as needed. 3. Knee range of motion and quad sets/straight leg raise regularly 4. Follow up with PA visit in 7-10 days. for a wound check. Initiate physical therapy at that time
--- NOTE | 2023-01-24 12:43 | W.ANESCHARGE ---
Anesthesia Charges Start Date/Time Anesthesia Start Date: 01/24/23 Anesthesia Start Time: 10:38 Stop Date/Time Anesthesia Stop Date: 01/24/23 Anesthesia Stop Time: 11:55
== END 2023-01-24 13:20 | disposition home or self-care (01) ==
PROVIDERS: PCP Family Medicine; Visit Provider Orthopaedic Surgery Sports Medicine
PROC: (CPT 29882; principal; 2023-01-24 10:15)
DX: S83.252A Bucket-handle tear of lateral meniscus, current injury, left knee, initial encounter (principal)
CPT/HCPCS: 29881; 1400; 81025; J0690; J1200; J1885; J2250; J2704; J2795; J3010; J7120

== ENCOUNTER 2023-03-03 16:40 | Outpatient (CLI) | payer OTHER, SELFPAY | END 2023-03-03 16:41 | disposition home or self-care (01) | LOC: NFLDREF 03-07 13:20 | PROVIDERS: PCP Family Medicine; Referring Provider Family Medicine; Visit Provider Dermatology | DX: L98.9 Disorder of the skin and subcutaneous tissue, unspecified (principal) | CPT/HCPCS: 87070; 87186 ==

== ENCOUNTER 2023-03-08 13:00 | Outpatient (RCR) | payer OTHER, SELFPAY | END 2023-06-09 13:35 | disposition home or self-care (01) | PROVIDERS: PCP Family Medicine; Visit Provider Physician Assistant | DX: M54.2 Cervicalgia (principal); Z51.89 Encounter for other specified aftercare | CPT/HCPCS: 97110; 97140; 97162 ==

== ENCOUNTER 2023-09-27 09:06 | Outpatient (CLI) | payer OTHER, SELFPAY ==
--- OUTSIDE RECORDS SUMMARY | 2023-09-27 09:09 | XMS_ITS | Clinical Summary ---
Author Name Unknown Organization [facility] Address [address] [place] [address]. [place] [address] Care Team Providers Care Pants Presser Name Role Phone Sascha Apodaca MD Primary Care Provider Social History Tobacco Use Types Packs/Day Years Used Date Smoking Tobacco: Never Assessed Sex and Gender Information Value Date Recorded Sex Assigned at Not on file Gender Identity Not on file Sexual Orientation Not on file Plan of Treatment Not on file Care Teams Pants Presser Relationship Specialty Start Date End Date Sascha Apodaca MD [facility] [address] [place] [address] PCP - General Emergency Medicine 05/10/17
--- OUTSIDE RECORDS SUMMARY | 2023-09-27 09:09 | XMS_ITS | Clinical Summary ---
Author Name Unknown Organization [employer] [facility] [employer] Address [place], [place] [address] Care Team Providers Care Insurance Verification Clerk Name Role Phone Kylee Isaacs MD Primary Care Provider + Allergies Active Allergy Reactions Criticality Noted Date Comments Cat Dander Bronchospasm 04/21/2010 Bronchospasm Dog Dander Bronchospasm 03/25/2018 Bronchospasm Unlisted Allergen (Include Detail In Comments) Arrhythmia 09/14/2018 Avoid any medications that prolong the QT. Pollen Extracts Bronchospasm 03/25/2018 Bronchospasm Medications Medication Sig Dispensed Refills Start Date End Date Status busPIRone (BUSPAR) 5 mg tablet Take 5 mg by mouth 2 times daily. 09/06/2018 Active LORazepam (ATIVAN) 0.5 mg tab Take 0.5 mg by mouth at bedtime if needed. 09/06/2018 Active SUMAtriptan (IMITREX) 50 mg tablet Take 50 mg by mouth every 2 hours if needed. Max dose is 4 tablets. 09/02/2018 Active VENTOLIN HFA 90 mcg/actuation inhaler 90 mcg. 6 07/18/2018 Active indomethacin (INDOCIN) 25 mg capsule TAKE 1 CAPSULE BY MOUTH NEEDED FOR HEADACHE. ADMINISTER WITH FOOD OR MILK. 1-2 CAPSULES 30-60 MINUTES PRIOR TO EXERCISE 12/08/2022 Active Active Problems Problem Noted Date Diagnosed Date Seasonal allergies 09/14/2018 Environmental allergies 09/14/2018 Long Q-T syndrome 09/14/2018 Overview: Familial. See cardiology note 04/12/18. Needs cardioversion if any sort of fainting, seizure type episode. She has never had an episode. Immunizations Name Administration Dates Next Due Influenza Virus, Unspecified 03/30/2017 Tdap 07/19/2016 Social History Tobacco Use Types Packs/Day Years Used Date Smoking Tobacco: Never Smokeless Tobacco: Never Tobacco Cessation:Counseling Given: Yes Social Connections Answer Date Recorded Frequency of Communication with Friends and Fami ly Not on file 06/03/2021 Financial Resource Strain Answer Date R ecorded Difficulty of Paying Living Expenses Not on file 06/03/2021 Difficulty of Paying Living Expenses Not on file 06/03/2021 Sex and Gender Information Value Date Recorded Sex Assigned at Not on file Gender Identity Not on file Sexual Orientation Not on file Obstetrics History Last Filed Vital Signs Vital Sign Reading Time Taken Comments Blood Pressure 95/60 01/12/2023 10:49 AM CDT to wer Pulse 66 01/12/2023 10:49 AM CDT Temperature - - Respiratory Rate - - Oxygen Saturation 98% 01/12/2023 10:49 AM CDT Inhaled Oxygen Concentration - - Weight 65.4 kg (144 lb 3.2 oz) 09/26/2018 2:44 P M CDT Height 166.8 cm (5' 5.67) 09/26/2018 2:44 PM CD T Body Mass Index 23.51 09/26/2018 2:44 PM CDT Plan of Treatment Health Maintenance Due Date Last Done Comments Depression screening for age 12+ 1989 HIV for age 15-65 1992 Hepatitis C screening for age 18-79 1995 BMI (ht and wt on same day) for age 18+ 09/27/2019 09/26/2018 Colonoscopy through age 75 2022 Lipids for age 45-75 2022 Mammogram for age 45-75 2022 COVID-19 vaccine series (2022- season) 2023 02/25/2022, 03/11/2021 Influenza for age 9-49 02/12/2024 03/30/2017 Pap test for age 21-65 12/06/2025 , 12/06/2022, 04/12/2017, Additional history exists Tetanus booster 07/19/2026 07/19/2016 Tdap Completed 07/19/2016 Pneumococcal series for age 6-64 Aged Out No longer eligible based on patient's age to complete this topic Procedures Procedure Name Priority Date/Time Associated Diagnosis Comments HPV THIN PREP Routine 12/06/2022 12:00 PM CDT from Last 3 Months or Most Recently Relevant to Health Maintenance Results * HPV HIGH RISK (12/06/2022 12:00 PM CDT) TYPE 16 Negative Negative 12/15/2022 1:35 PM CDT [facility] TYPE 18 Negative Negative 12/15/2022 1:35 PM CDT [facility] TRAL LABORATORY OTHER HIGH RISK TYPES Negative Negative 12/15/2022 1:35 PM CDT [facility] TRA LABORATORY Other (Cervical) 12/06/2022 12:00 PM CDT 12/08/2022 5:03 PM CDT Narrative [facility] - 12/15/2022 1:35 PM CDT HPV types 16, 18, 31, 33, 35, 39, 45, 51, 52, 56, 58, 59, 66 and 68 DNA were undetectable or below the pre-set threshold. Methodology: Isidoro Ju 4800 HPV Test September Tanya GARCIA MICROBIOLOGY [facility] [address] [place] [address], from Last 3 Months or Most Recently Relevant to Health Maintenance Care Teams Insurance Verification Clerk Relationship Specialty Start Date End Date Kylee Isaacs MD [address] [place] [address] PCP - General Family Practice 05/26/21
--- OUTSIDE RECORDS SUMMARY | 2023-09-27 09:09 | XMS_ITS | Referral Summary ---
Author Name Unknown Organization [facility] Address [address] [place] [address]. [place] [address] Care Team Providers Care Book Critic Name Role Phone Sascha Apodaca MD Primary Care Provider Social History Tobacco Use Types Packs/Day Years Used Date Smoking Tobacco: Never Assessed Sex and Gender Information Value Date Recorded Sex Assigned at Not on file Gender Identity Not on file Sexual Orientation Not on file Plan of Treatment Not on file Care Teams Book Critic Relationship Specialty Start Date End Date Sascha Apodaca MD [facility] [address] [place] [address] PCP - General Emergency Medicine 05/10/17
--- OUTSIDE RECORDS SUMMARY | 2023-09-27 09:10 | XMS_ITS | Clinical Summary ---
Author Name Unknown Organization [facility] Address [address] [place] [address] Care Team Providers Care Borderer Name Role Phone Sascha Apodaca MD Primary Care Provider [phone]- [phone] Source Comments You are receiving this document as you are listed as the primary care provider,follow-up provider, or the patient has been referred to you for consultation.This is in compliance with the Medicare and[facility] EHR Incentive Program,which states Providers who transition their patient to another setting of careor provider of care or refers their patient to another provider of care shouldprovide summary care record for each transition of care or referral. [facility] Allergies No known active allergies Medications Medication Sig Dispensed Refills Start Date End Date Status ALBUterol sulfate HFA 108 (90 BASE) MCG/ACT inhaler Inhale 2 Puffs every 4 hours as needed for Wheezing. Active oseltamivir (TAMIFLU) 75 MG capsuleIndications:F nettie-like symptoms Take 1 twice daily x 5 days 10 Cap 0 08/01/2016 Active Additional Information Patient not taking.Reported on 06/07/2017 Active Problems No known active problems Social History Tobacco Use Types Packs/Day Years Used Date Smoking Tobacco: Never Smokeless Tobacco: Never Sex and Gender Information Value Date Recorded Sex Assigned at Not on file Gender Identity Not on file Sexual Orientation Not on file Last Filed Vital Signs Vital Sign Reading Time Taken Comments Blood Pressure - - Pulse 77 08/01/2016 4:26 PM NAIL SETTER Temperature 37.2 ??C (98.9 ??F) 08/01/2016 4:26 PM CS T Respiratory Rate - - Oxygen Saturation 100% 08/01/2016 4:26 PM NAIL SETTER Inhaled Oxygen Concentration - - Weight 59 kg (130 lb) 06/07/2017 2:47 PM NAIL SETTER Height 167.6 cm (5' 6) 06/07/2017 2:47 PM NAIL SETTER Body Mass Index 20.98 06/07/2017 2:47 PM NAIL SETTER Plan of Treatment Health Maintenance Due Date Last Done Comments Cervical Cancer Screening Due 1977 Colon Cancer Screening Plan Due 1977 Hep C Screening (Preventive Services) 1977 HIV Screening (Preventive Services) 1993 Adult Preventive Visit 1995 HepB (1) 1996 Cholesterol 2022 COVID-19 Vaccine ( season) 2023 06/24/2020, 06/04/2020 Influenza (#1) 2023 03/19/2020, 07/2018, 03/15/2018, Additional history exists DTaP/Tdap/Td (2 - Tdap) 07/19/2026 07/19/2016 Zoster/Shingles (1 of 2) 2027 HepA Aged Out No longer eligi ble based on patient's age to complete this topic Hib Aged Out No longer eligi ble based on patient's age to complete this topic IPV (Polio) Aged Out No longer eligi ble based on patient's age to complete this topic MCV4 Aged Out No longer eligi ble based on patient's age to complete this topic Pneumococcal Aged Out No longer eligi ble based on patient's age to complete this topic Care Teams Borderer Relationship Specialty Start Date End Date Sascha Apodaca MD [address] [place] [address] PCP - General 05/30/17
== END 2023-09-27 09:07 | disposition home or self-care (01) ==
PROVIDERS: PCP Family Medicine; Visit Provider Obstetrics & Gynecology
DX: Z13.220 Encounter for screening for lipoid disorders (principal); Z13.228 Encounter for screening for other metabolic disorders; Z13.1 Encounter for screening for diabetes mellitus
CPT/HCPCS: 80061; 80076; 82947

== ENCOUNTER 2023-12-16 12:34 | Outpatient (CLI) | payer OTHER, SELFPAY ==
--- OUTSIDE RECORDS SUMMARY | 2023-12-16 12:35 | XMS_ITS | Clinical Summary ---
Author Organization [facility] Address [address] [place] [address]. [place] [address] Care Team Providers Care Economic Development Director Name Role Phone Sascha Apodaca MD Primary Care Provider Social History Tobacco Use Types Packs/Day Years Used Date Smoking Tobacco: Never Assessed Sex and Gender Information Value Date Recorded Sex Assigned at Not on file Gender Identity Not on file Sexual Orientation Not on file Plan of Treatment Not on file Care Teams Economic Development Director Relationship Specialty Start Date End Date Sascha Apodaca MD [facility] [address] [place] [address] PCP - General Emergency Medicine 05/10/17
--- OUTSIDE RECORDS SUMMARY | 2023-12-16 12:35 | XMS_ITS | Clinical Summary ---
Author Organization [employer] [facility] [facility] Address [place], [place] [address] Care Team Providers Care Real Estate Appraiser Name Role Phone Kylee Isaacs MD Primary [...] 16 Negative Negative 12/15/2022 1:35 PM CDT [facility] TRAL LABORATORY TYPE 18 Negative Negative 12/15/2022 1:35 PM CDT [facility] TRAL LABORATORY OTHER HIGH RISK TYPES Negative Negative 12/15/2022 1:35 PM CDT [facility] TRA LABORAT[facility] Other (Cervical) 12/06/2022 12:00 PM CDT 12/08/2022 5:03 PM CDT Narrative [facility] LAB[facility]ATORY - 12/15/2022 1:35 PM CDT HPV types 16, 18, 31, 33, 35, 39, 45, 51, 52, 56, 58, 59, 66 and 68 DNA were undetectable or below the pre-set threshold. Methodology: Isidoro Ju 4800 HPV Test September Tanya GARCIA MICROBIOLOGY [facility] [address] [place] [address], from Last 3 Months or Most Recently Relevant to Health Maintenance Care Teams Real Estate Appraiser Relationship Specialty Start Date End Date Kylee Isaacs MD [address] [place] [address] PCP - General Family Practice 05/26/21
--- OUTSIDE RECORDS SUMMARY | 2023-12-16 12:35 | XMS_ITS | Referral Summary ---
Author Organization [facility] Address [address] [place] [address]. [place] [address] Care Team Providers Care Sample Driller Name Role Phone Sascha Apodaca MD Primary Care Provider Social History Tobacco Use Types Packs/Day Years Used Date Smoking Tobacco: Never Assessed Sex and Gender Information Value Date Recorded Sex Assigned at Not on file Gender Identity Not on file Sexual Orientation Not on file Plan of Treatment Not on file Care Teams Sample Driller Relationship Specialty Start Date End Date Sascah Apodaca MD [facility] [address] [place] [address] PCP - General Emergency Medicine 05/10/17
--- OUTSIDE RECORDS SUMMARY | 2023-12-16 12:35 | XMS_ITS | Clinical Summary ---
Author Organization [facility] Address [address] [place] [address] Care Team Providers Care Parts Control Clerk Name Role Phone Sascha Apodaca MD Primary Care Provider +1- [phone] Source Comments You are receiving this document as you are listed as the primary care provider,follow-up provider, or the patient has been referred to you for consultation.This is in compliance with the Medicare and[facility] EHR Incentive Program,which states Providers who transition their patient to another setting of careor provider of care or refers their patient to another provider of care shouldprovide summary care record for each transition of care or referral. [facility] Allergies No known active allergies Medications Medication [...] - - Pulse 77 08/01/2016 4:26 PM WEB DEVELOPER PROGRAMMER Temperature 37.2 ??C (98.9 ??F) 08/01/2016 4:26 PM CS T Respiratory Rate - - Oxygen Saturation 100% 08/01/2016 4:26 PM WEB DEVELOPER PROGRAMMER Inhaled Oxygen Concentration - - Weight 59 kg (130 lb) 06/07/2017 2:47 PM WEB DEVELOPER PROGRAMMER Height 167.6 cm (5' 6) 06/07/2017 2:47 PM WEB DEVELOPER PROGRAMMER Body Mass Index 20.98 06/07/2017 2:47 PM WEB DEVELOPER PROGRAMMER Plan of Treatment Health Maintenance Due Date Last Done Comments Cervical Cancer Screening Due 1977 Colon Cancer Screening Plan Due 1977 Hep C Screening (Preventive Services) 1977 Mammogram 1977 HIV Screening (Preventive Services) 1993 Adult Preventive Visit 1995 HepB (1) 1996 Cholesterol 2022 COVID-19 Vaccine (3 - season) 2023 06/24/2020, 06/04/2020 Influenza (Season Ended) 2024 020, 03/14/2019, 03/15/2018, Additional history exists DTaP/Tdap/Td (2 - [...] age to complete this topic Care Teams Parts Control Clerk Relationship Specialty Start Date End Date Sascha Apodaca MD [address] [place] [address] PCP - General 05/30/17
[2023-12-16 15:33] LABS: Bacterial Vaginosis* Negative (Negative); Candida glab/krus NOT DETECTED (No Detected); Candida species NOT DETECTED (No Detected); Trichomonas vaginalis NOT DETECTED (No Detected)
== END 2023-12-16 12:35 | disposition home or self-care (01) ==
LOC: NFLDREF 12:34
PROVIDERS: PCP Family Medicine; Visit Provider Obstetrics & Gynecology
DX: N89.8 Other specified noninflammatory disorders of vagina (principal)
CPT/HCPCS: 81513; 87481; 87661

== ENCOUNTER 2024-04-24 15:45 | Outpatient (CLI) | payer OTHER, SELFPAY ==
--- OUTSIDE RECORDS SUMMARY | 2024-04-24 15:48 | XMS_ITS | Clinical Summary ---
Author Organization [employer] [facility] [employer] [facility] Address [place], [place] [address] Care Team Providers Care Metal Fabricator Helper Name Role Phone Kylee Isaacs MD Primary [...] Environmental allergies 09/14/2018 Long Q-T syndrome 09/14/2018 Overview (09/14/2018): Familial. See cardiology note 04/12/18. Needs cardioversion [...] for age 45-75 2022 COVID-19 vaccine series ( season) 2024 02/25/2022, 03/11/2021 Influenza for age 9-49 02/12/2024 03/30/2017 Pap test for age 21-65 12/06/2025 3, 12/06/2022, 04/12/2017, Additional history exists Tetanus booster 07/19/2026 07/19/2016 Tdap Completed 07/19/2016 Pneumococcal series for age 6-64 Aged Out No longer eligible based on patient's age to complete this topic Procedures Procedure Name Priority Date/Time Associated Diagnosis Comments HPV HIGH RISK Routine 12/06/2022 12:00 PM CDT from Last 3 Months or Most Recently Relevant to Health Maintenance Results * HPV HIGH RISK (12/06/2022 12:00 PM CDT) TYPE 16 Negative Negative 12/15/2022 1:35 PM CDT [facility] TRAL LABORATORY TYPE 18 Negative Negative 12/15/2022 1:35 PM CDT [facility] TR[facility] OTHER HIGH RISK TYPES Negative Negative 12/15/2022 1:35 PM CDT [facility] Other (Cervical) 12/06/2022 12:00 PM CDT 12/08/2022 5:03 PM CDT Narrative [facility] - 12/15/2022 1:35 PM CDT HPV types 16, 18, 31, 33, 35, 39, 45, 51, 52, 56, 58, 59, 66 and 68 DNA were undetectable or below the pre-set threshold. Methodology: Isidoro Ju 4800 HPV Test September Tanya GARCIA MICROBIOLOGY [facility] [address] [place] [address], from Last 3 Months or Most Recently Relevant to Health Maintenance Care Teams Metal Fabricator Helper Relationship Specialty Start Date End Date Kylee Isaacs MD [address] [place] [address] PCP - General Family Practice 05/26/21
--- OUTSIDE RECORDS SUMMARY | 2024-04-24 15:48 | XMS_ITS | Clinical Summary ---
Author Organization [facility] Address [address] [place] [address]. [place] [address] Care Team Providers Care Mobile Sales Consultant Name Role Phone Sascha Apodaca MD Primary Care Provider Social History Tobacco Use Types Packs/Day Years Used Date Smoking Tobacco: Never Assessed Comments Unknown Sex and Gender Information Value Date Recorded Sex Assigned at Not on file Legal Sex Female 9:54 AM CURING PRESS OPERATOR Gender Identity Not on file Sexual Orientation Not on file Plan of Treatment Not on file Care Teams Mobile Sales Consultant Relationship Specialty Start Date End Date Sascha Apodaca MD [facility] [address] [place] [address] PCP - General Emergency Medicine 05/10/17
--- OUTSIDE RECORDS SUMMARY | 2024-04-24 15:48 | XMS_ITS | Referral Summary ---
Author Organization [facility] Address [address] [place] [address]. [place] [address] Care Team Providers Care Healthcare Representative Name Role Phone Sascha Apodaca MD Primary Care Provider Social History Tobacco Use Types Packs/Day Years Used Date Smoking Tobacco: Never Assessed Comments Unknown Sex and Gender Information Value Date Recorded Sex Assigned at Not on file Legal Sex Female 9:54 AM STORE STOCK HELP Gender Identity Not on file Sexual Orientation Not on file Plan of Treatment Not on file Care Teams Healthcare Representative Relationship Specialty Start Date End Date Sascha Apodaca MD [facility] [address] [place] [address] PCP - General Emergency Medicine 05/10/17
--- OUTSIDE RECORDS SUMMARY | 2024-04-24 15:48 | XMS_ITS | Clinical Summary ---
Author Organization [facility] Address [address] [place] [address] Care Team Providers Care Master Automotive Glass Technician Name Role Phone Sascha Apodaca MD Primary Care Provider [phone]- [phone] Source Comments You are receiving this document as you are listed as the primary care provider,follow-up provider, or the patient has been referred to you for consultation.This is in compliance with the Medicare and[facility] EHR Incentive Program,which states Providers who transition their patient to another setting of careor provider of care or refers their patient to another provider of care shouldprovide summary care record for each transition of care or referral. [facility] Allergies No known active allergies Medications Medication [...] - - Pulse 77 08/01/2016 4:26 PM ENVIRONMENTAL SERVICES MANAGER Temperature 37.2 ??C (98.9 ??F) 08/01/2016 4:26 PM CS T Respiratory Rate - - Oxygen Saturation 100% 08/01/2016 4:26 PM ENVIRONMENTAL SERVICES MANAGER Inhaled Oxygen Concentration - - Weight 59 kg (130 lb) 06/07/2017 2:47 PM ENVIRONMENTAL SERVICES MANAGER Height 167.6 cm (5' 6) 06/07/2017 2:47 PM ENVIRONMENTAL SERVICES MANAGER Body Mass Index 20.98 06/07/2017 2:47 PM ENVIRONMENTAL SERVICES MANAGER Plan of Treatment Health Maintenance Due Date Last Done Comments Cervical Cancer Screening Due 1977 Colon Cancer Screening Plan Due 1977 Hep C Screening (Preventive Services) 1977 Mammogram 1977 HIV Screening (Preventive Services) 1993 Adult Preventive Visit 1995 HepB (1) 1996 Cholesterol 2022 COVID-19 Vaccine ( season) 2024 06/24/2020, 06/04/2020 Influenza (#1) 2024 03/19/2020, 07/2018, 03/15/2018, Additional history exists DTaP/Tdap/Td (2 - Tdap) 07/19/2026 07/19/2016 Zoster/Shingles (1 of 2) 2027 HepA Aged Out No longer eligi ble based on patient's age to complete this topic Hib Aged Out No longer eligi ble based on patient's age to complete this topic IPV (Polio) Aged Out No longer eligi ble based on patient's age to complete this topic Infant RSV Aged Out No longer eligi ble based on patient's age to complete this topic MCV4 Aged Out No longer eligi ble based on patient's age to complete this topic Pneumococcal Aged Out No longer eligi ble based on patient's age to complete this topic Care Teams Master Automotive Glass Technician Relationship Specialty Start Date End Date Sascha Apodaca MD [address] [place] [address] PCP - General 05/30/17
== END 2024-04-24 15:46 | disposition home or self-care (01) ==
PROVIDERS: PCP Family Medicine; Visit Provider Obstetrics & Gynecology
DX: R53.83 Other fatigue (principal)
CPT/HCPCS: 82306; 84443

== ENCOUNTER 2024-05-14 08:51 | Outpatient (CLI) | payer OTHER, SELFPAY ==
--- OUTSIDE RECORDS SUMMARY | 2024-05-14 08:53 | XMS_ITS | Clinical Summary ---
Author Organization [facility] Address [place], [place] [address] Care Team Providers Care Promos Executive Producer Name Role Phone Kylee Isaacs MD Primary [...] Negative Negative 12/15/2022 1:35 PM CDT [facility] TYPE 18 Negative Negative 12/15/2022 1:35 PM CDT [facility] OTHER HIGH RISK TYPES Negative Negative 12/15/2022 1:35 PM CDT [facility] Other (Cervical) 12/06/2022 12:00 PM CDT 12/08/2022 5:03 PM CDT Narrative [facility] - 12/15/2022 1:35 PM CDT HPV types 16, 18, 31, 33, 35, 39, 45, 51, 52, 56, 58, 59, 66 and 68 DNA were undetectable or below the pre-set threshold. Methodology: Isidoro Ju 4800 HPV Test September Tanya [facility]ARC[facility] [address] [place] [address], from Last 3 Months or Most Recently Relevant to Health Maintenance Care Teams Promos Executive Producer Relationship Specialty Start Date End Date Kylee Isaacs MD [address] [place] [address] PCP - General Family Practice 05/26/21
--- OUTSIDE RECORDS SUMMARY | 2024-05-14 08:53 | XMS_ITS | Clinical Summary ---
[facility] Organization [facility] Address [address] [place] [address] Care Team Providers Care Metal Furnace Operator Name Role Phone Sascha Apodaca MD Primary Care Provider [phone] Source Comments You are receiving this document as you are listed as the primary care provider,follow-up provider, or the patient has been referred to you for consultation.This is in compliance with the Medicare and[facility] EHR Incentive Program,which states Providers who transition their patient to another setting of careor provider of care or refers their patient to another provider of care shouldprovide summary care record for each transition of care or referral. [facility] Allergies No known active allergies [...] - - Pulse 77 08/01/2016 4:26 PM [employer] Temperature 37.2 C (98.9 F) 08/01/2016 4:26 PM [employer] Respiratory Rate - - Oxygen Saturation 100% 08/01/2016 4:26 PM [employer] Inhaled Oxygen Concentration - - Weight 59 kg (130 lb) 06/07/2017 2:47 PM [employer] Height 167.6 cm (5' 6) 06/07/2017 2:47 PM [employer] Body Mass Index 20.98 06/07/2017 2:47 PM [employer] Plan of Treatment Health Maintenance Due Date [...] age to complete this topic Care Teams Metal Furnace Operator Relationship Specialty Start Date End Date Sascha Apodaca MD [address] [place] [address] PCP - General 05/30/17
--- OUTSIDE RECORDS SUMMARY | 2024-05-14 08:53 | XMS_ITS | Referral Summary ---
Author Organization [facility] Address [address] [place] [address]. 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
--- OUTSIDE RECORDS SUMMARY | 2024-05-14 08:53 | XMS_ITS | Clinical Summary ---
Author Organization [facility] Address [address] [place] [address]. 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
--- NOTE | 2024-05-14 10:02 | W.ANESCHARGE ---
Anesthesia Charges Start Date/Time Anesthesia Start Date: 05/14/24 Anesthesia Start Time: 09:30 Stop Date/Time Anesthesia Stop Date: 05/14/24 Anesthesia Stop Time: 09:59
--- NOTE | 2024-05-14 10:10 | W.ANESCHARGE ---
Anesthesia Charges Start Date/Time Anesthesia Start Date: 05/14/24 Anesthesia Start Time: 09:30 Stop Date/Time Anesthesia Stop Date: 05/14/24 Anesthesia Stop Time: 09:59
== END 2024-05-14 08:52 | disposition home or self-care (01) ==
PROVIDERS: PCP Family Medicine; Visit Provider Surgery
DX: Z12.11 Encounter for screening for malignant neoplasm of colon (principal); K57.30 Diverticulosis of large intestine without perforation or abscess without bleeding
CPT/HCPCS: 00811; 00812; 45378; J2704

== ENCOUNTER 2024-05-26 09:13 | Emergency (ER) | payer OTHER, SELFPAY ==
--- NOTE | 2024-05-26 09:15 | CRLHL7_ITS ---
For Patients: As a result of the Century Cures Act, medical imaging exams and procedure reports are released immediately into your electronic medical record. You may view this report before your referring provider. If you have questions, please contact your health care provider. INDICATION: Dyspnea COMPARISON: June 05, 2020 TECHNIQUE: PA and lateral views of the chest were acquired FINDINGS: TUBES AND LINES: None. HEART AND MEDIASTINUM: The heart size is normal. The mediastinal contour appears normal for patient age. LUNGS AND PLEURAL SPACES: The lungs appear normal.The pleural spaces are unremarkable. OSSEOUS STRUCTURES: S shaped scoliosis IMPRESSION: No evidence of active pulmonary disease. There is an S shaped scoliosis. Dictated by aPrag Mas MD @ 05/26/2024 9:38:44 AM (Electronically Signed)
[2024-05-26 09:18] VITALS: BP 101/58; PULSE 65; RESP 18; TEMP 36.4; O2SAT 96; BMI 22.6
--- NOTE | 2024-05-26 09:43 | ED_ITS ---
HPI - General Adult General Chief complaint: Cough Stated complaint: flu symptoms Time Seen by Provider: 05/26/24 09:15 History of Present Illness HPI narrative: Patient is a 49-year-old woman with history of asthma who presents with nonproductive cough general malaise body aches fatigue. She is having hard time with work of breathing. Chest x-ray and my review shows questionable right lower lobe infiltrate. X-ray we review by Radiology shows negative chest x-ray. She has oxygen saturation of 96% on room air respirations are 18. Her cough has been nonproductive. She was recently diagnosed 2 days ago with influenza a. He did not take him fluids her symptoms have been present for 4-5 days. Related Data Home Medications ?Medication ?Instructions ?Recorded ?Confirmed rimegepant 75 mg disintegrating 75 mg PO ONCE PRN 01/13/23 03/19/24 tablet (Nurtec ODT) isotretinoin 30 mg capsule 30 mg PO QDAY 03/19/24 03/19/24 (Accutane) Previous Rx's ?Medication ?Instructions ?Recorded indomethacin 25 mg capsule 25 mg PO ONCE PRN headache #30 caps 12/06/22 clobetasol 0.05 % topical cream 1 applic topical BID #60 grams 03/03/23 albuterol sulfate 90 mcg/actuation 2 puff PO Q4-6H PRN for wheezing 03/01/24 aerosol inhaler #8.5 grams lorazepam 0.5 mg tablet 0.5 mg PO QDAY PRN anxiety #30 tabs 03/01/24 fluticasone furoate 100 1 inh inhalation Q24H #30 ea 04/24/24 mcg/actuation blister powder for inhalation (Arnuity Ellipta) Allergies Allergy/AdvReac Type Severity Reaction Status Date / Time any drug that prolonges the AdvReac Uncoded 03/19/24 15:57 QT intrerval Review of Systems Status of ROS: Reports: 10 or more systems reviewed and unremarkable except as noted in History and below [facility] Medical History Prolonged QT interval ?R94.31 - Abnormal electrocardiogram [ECG] [EKG] (ICD-10) Migraine ?G43.909 - Migraine, unspecified, not intractable, without status migrainosus (ICD-10) Vitamin D deficiency ?E55.9 - Vitamin D deficiency, unspecified (ICD-10) depression (2007) ?F53.0 - depression (ICD-10) History of abnormal cervical Papanicolaou smear (2013) ?Z87.42 - Personal history of other diseases of the female genital tract (ICD-10) Surgical History History of knee surgery ?Z98.890 - Other specified postprocedural states (ICD-10) History of colposcopy with cervical biopsy (2013) ?Z98.890 - Other specified postprocedural states (ICD-10) History of bilateral breast implants ?Z98.82 - Breast implant status (ICD-10) Family History Father Alcohol dependence Brother Alcohol dependence Maternal Grandfather Colon cancer Other Anxiety 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 Exercises 5 days a week, running/biking/elliptical. Nonsmoker. What is your current living situation?: I presently have a place to live Problems where you live: no known problems In the past 12 months, utilities in danger of being shut off: no In the past 12 mos, have been you worried that your food would run out before you had money to buy more?: never true In the past 12 mos, the food you bought just didn't last and you didn't have money to buy more?: never true Smoking Status: Never smoker Do you use any of these nicotine containing products: None Second hand tobacco smoke exposure: No Non-prescribed substance use: denies use How often does anyone, including family, friends and others, physically hurt you : How often does anyone, including family, friends and others, insult or talk down to you: How often does anyone, including family, friends and others, threaten you with harm: How often does anyone, including family, friends and others, scream or curse at you: Exam Narrative: Exam Narrative: EXAM GENERAL: Patient appears comfortable and well. EYES: No scleral icterus. LYMPH: No supraclavicular or cervical lymphadenopathy. SKIN: Visible skin seen during exam normal or with benign process only. EXT: No dependent lower extremity pedal edema. HEART: Regular rate and rhythm with no murmurs, rubs, or gallops. LUNGS: Scattered rhonchi primarily in the left base.. ABD: Soft, non tender, non distended. PSYCH: Good eye contact, speech is not pressured. Const: Vital Signs, click to edit/add: Vital Signs - 24 hr 05/26/24 09:18 Temperature 97.6 F Pulse Rate [Pulse Oximeter] 65 Respiratory Rate 18 Blood Pressure [Ri ght Upper Arm] 101/58 L Pulse Oximetry 96 Oxygen Delivery Me thod Room Air Course Course ED Course: Patient seen and examined. X-ray reviewed.. Vital Signs Vital signs: Initial Vital Signs Temperature 97.6 F 05/26/24 09:18 Temperature Source Temporal Artery Scan 05/26/24 09:18 Pulse Rate 65 05/26/24 09:18 Respiratory Rate 18 05/26/24 09:18 Blood Pressure 101/58 L 05/26/24 09:18 Blood Pressure Mean 72 05/26/24 09:18 Pulse Oximetry 96 05/26/24 09:18 Oxygen Delivery Method Room Air 05/26/24 09:18 Vital Signs Temperature 97.6 F 05/26/24 09:18 Pulse Rate 65 05/26/24 09:18 Respiratory Rate 18 05/26/24 09:18 Blood Pressure 101/58 L 05/26/24 09:18 Pulse Oximetry 96 05/26/24 09:18 Oxygen Delivery Method Room Air 05/26/24 09:18 Temperature 97.6 F 05/26/24 09:18 Pulse Rate 65 05/26/24 09:18 Respiratory Rate 18 05/26/24 09:18 Blood Pressure 101/58 L 05/26/24 09:18 Pulse Oximetry 96 05/26/24 09:18 Oxygen Delivery Method Room Air 05/26/24 09:18 Medical Decision Making MDM Narrative Medical decision making narrative: Patient is a 49-year-old woman who presents with cough and shortness of breath. She is influenza A positive but is not on Tamiflu do the duration of symptoms. Chest x-ray is read as normal by Radiology. She does have history of asthma and as result I did treat her with prednisone and Zithromax. She will continue her asthma treatment and will follow-up on a p.r.n. basis. Discharge Plan Discharge Clinical Impression: Bronchitis Patient Disposition: Home, Self-Care Condition: Stable Instructions: Acute Bronchitis (ED) Additional Instructions: Zithromax as directed Prednisone as directed Continue current asthma treatment. Follow-up with your doctor as needed. Activity Level: No Restrictions Discharge Diet: Regular Prescriptions: No Action indomethacin 25 mg capsule 25 mg PO ONCE PRN (Reason: headache) Qty: 30 0RF Rx Instructions: administer with food or milk, 1-2 capsules 30-60 minutes prior to exercise clobetasol 0.05 % cream 1 applic topical BID Qty: 60 1RF Nurtec ODT 75 mg tablet,disintegrating 75 mg PO ONCE PRN Rx Instructions: as a single dose isotretinoin [Accutane] 30 mg capsule 30 mg PO QDAY Rx Instructions: must administer with a meal/food albuterol sulfate 90 mcg/actuation HFA aerosol inhaler 2 puff PO Q4-6H PRN (Reason: for wheezing) Qty: 8.5 3RF lorazepam 0.5 mg tablet 0.5 mg PO QDAY PRN (Reason: anxiety) Qty: 30 0RF Arnuity Ellipta 100 mcg/actuation blister with device 1 inh inhalation Q24H Qty: 30 8RF Follow Up/Referrals: Kylee Isaacs MD [Primary Care Provider] - Stand Alone Forms: Every[employer] Info Instructions
== END 2024-05-26 09:52 | disposition home or self-care (01) ==
PROVIDERS: Emergency Provider Internal Medicine; PCP Family Medicine
DX: J40 Bronchitis, not specified as acute or chronic (principal)
CPT/HCPCS: 71046; 99283

== ENCOUNTER 2024-08-14 11:54 | Outpatient (CLI) | payer OTHER, SELFPAY | END 2024-08-14 11:55 | disposition home or self-care (01) | LOC: NFLDREF 08-15 00:13 | PROVIDERS: PCP Family Medicine; Referring Provider Family Medicine; Visit Provider Physician Assistant | DX: F52.0 Hypoactive sexual desire disorder (principal) | CPT/HCPCS: 84270; 84402; 84403; 84443 ==